=== PATIENT | male | born 1985 | race Caucasian/White ===

== ENCOUNTER 2016-12-11 14:39 | Outpatient (CLI) | payer OTHER ==
--- NOTE | 2016-12-12 14:07 | MRI Report ---
EXAM: LEFT KNEE MRI WITHOUT CONTRAST EXAM DATE: 12/11/2016 04:03 PM. CLINICAL HISTORY: Basketball injury one month ago. Pain in left knee. COMPARISON: None. TECHNIQUE: Multiplanar, multisequence T1-weighted and fluid-sensitive sequences of the knee without c ontrast. Other: None. FINDINGS: Cruciate ligaments: The posterior cruciate ligament appears intact. The anterior cruciate ligament ap pears torn proximally. Medial meniscus: Far peripheral horizontal tear at the tibial articular surface of the posterior horn . Lateral meniscus: Intact. No tear is identified. Collateral ligaments: The medial and fibular collateral ligaments appear intact. Bones and articular surfaces: Focal areas of marrow edema consistent with bone contusion at the poste rior aspect of the lateral greater than medial tibial plateau, as well as the periphery of the epifanio lateral weight-bearing lateral femoral condyle. No osteochondral lesions. No significant articular ca rtilage defects are seen. Moderate-size joint effusion. Extensor mechanism: The patellar tendon and quadriceps insertion appear intact. IMPRESSION: 1. Tear of the anterior cruciate ligament with corresponding bone contusions. 2. Peripheral horizontal tear at the tibial articular surface of the posterior horn medial meniscus. 3. Moderate-size joint effusion. [facility] MUSCULOSKELETAL RADIOLOGY SECTION Referring Provider Line: [phone] SITE ID: [id number]
== END 2016-12-11 14:40 | disposition home or self-care (01) ==
LOC: DI 14:39
PROVIDERS: ATTEND Orthopaedic Surgery
DX: S83.512A Sprain of anterior cruciate ligament of left knee, initial encounter (principal); S80.12XA Contusion of left lower leg, initial encounter; S83.242A Other tear of medial meniscus, current injury, left knee, initial encounter; M25.462 Effusion, left knee